=== PATIENT | female | born 1965 | race Caucasian/White ===

== ENCOUNTER 2017-06-28 08:35 | Emergency (ER) | payer MEDICARE, OTHER ==
[~2017-06-28] VITALS: Ht 170.2 cm; Wt 67.0 kg
[~2017-06-28 08:35] MED LIST: ALBU17I; ALBU17I INH; GABA300; IBUP-238 PO; TYLE500T PO
[2017-06-28 08:47] VITALS: BP 139/77; PULSE 68; RESP 19; TEMP 97.6; O2SAT 97
[2017-06-28] MEDS ORDERED: KETOROLAC TROMETHAMINE 60 MG/2 ML (IM) VIAL IM ONE (09:30)
--- NOTE | 2017-06-28 09:47 | PD ---
HPI Chief Complaint: Injury Time Seen by Provider: 09:11 Travel History International Travel<30 days: No Contact w/Intl Traveler<30days: No Traveled to known affect area: No History of Present Illness HPI 52-year-old female presents the emergency department status post slip and fall in the rain yesterday while walking home from work. Patient hurt her anterior espinal but was able to walk home, she states in the night she woke up to pee and noticed that her left knee "locked up", and she has excruciating pain, and is unable to fully extend the knee. She is able to flex it. There is mild effusion noted. She is unable to bear weight on it without significant pain. There is a contusion to the middle anterior espinal on the left. She has no obvious contusion or abrasion to the left knee. She denies any other injury. She denies hitting her head, or loss of consciousness. She states pain is 10 out of 10 and worse with movement. Patient is allergic to tramadol. PFSH Past Medical History Asthma: Yes Autoimmune Disease: No Blood Disorders: No Anxiety: Yes Depression: Yes Cancer: No Diabetes: Yes (NO MEDS) Diminished Hearing: No GERD: Yes Psychiatric: No Thyroid Disease: Yes ?: Not : 5 Para: 4 : 1 Tubal Ligation: Yes Past Surgical History AICD: No Body Medical Devices: RLS Pacemaker: No Other Surgery: Yes (RIGHT HAND) Social History Alcohol Use: Yes (5-6 BEERS PER WEEK) Tobacco Use: No Substance Use: Yes (COCAINE WEED-CLEAN FOR 12 YRS) Allergies-Medications (Allergen,Severity, Reaction): Coded Allergies: tramadol (Unverified Adverse Reaction, Mild, HIVES, 06/28/17) Reported Meds & Prescriptions Reported Meds & Active Scripts Active Tylenol (Acetaminophen) 500 Mg Tab 1,000 Mg PO TID PRN Motrin (Ibuprofen) 800 Mg Tab 800 Mg PO TID PRN Proventil Mdi (Albuterol Sulfate) 17 Gm Aero 2 Puff INH Q3-4HPRN Reported Neurontin (Gabapentin) 300 Mg Cap Proventil Mdi (Albuterol Sulfate) 17 Gm Aero Review of Systems Except as stated in HPI: all other systems reviewed are Neg General / Constitutional: No: Fever Eyes: No: Visual changes HENT: No: Headaches Cardiovascular: No: Chest Pain or Discomfort Respiratory: No: Shortness of Breath Gastrointestinal: No: Abdominal Pain Genitourinary: No: Dysuria Musculoskeletal: Positive: Arthralgias, Limited ROM, Pain Skin: No Rash Neurologic: No: Weakness Psychiatric: No: Depression Endocrine: No: Polydipsia Hematologic/Lymphatic: No: Easy Bruising Physical Exam Narrative GENERAL: Patient appears in mild to moderate distress. SKIN: Warm and dry. Normal color. Normal turgor. Patient has contusion with ecchymosis to the anterior left middle espinal. No other significant findings are noted. HEAD: Atraumatic. Normocephalic. EYES: Pupils equal and round. No scleral icterus. No injection or drainage. ENT: No nasal bleeding or discharge. Mucous membranes pink and moist. Pharynx is clear. Airways patent. NECK: Trachea midline. Supple and nontender. CARDIOVASCULAR: Regular rate and rhythm. RESPIRATORY: No accessory muscle use. Clear to auscultation. Breath sounds equal bilaterally. MUSCULOSKELETAL: Extremities without clubbing, cyanosis, or edema. No obvious deformities. Left knee exam is limited secondary to pain. Patient is unable to fully extend the knee, and it comes to a stop at 20 flexion. No significant effusion is noted. No significant pain with palpation to the knee joints. Patient has positive Moustapha's with medial rotation. No obvious laxity is noted. NEUROLOGICAL: Awake and alert. No obvious cranial nerve deficits. Motor grossly within normal limits. Five out of 5 muscle strength in the arms and legs. Normal speech. PSYCHIATRIC: Appropriate mood and affect; insight and judgment normal. Data Data Last Documented VS Vital Signs Date Time Temp Pulse Resp B/P (MAP) Pulse Ox O2 Delivery O2 Flow Rate FiO2 06/28/17 08:47 97.6 68 19 139/77 (97) 97 Orders Orders Knee, Complete (4vws) (06/28/17 09:17) Ice/Cold Pack (06/28/17 09:17) Splint Or Brace Apply/Monitor (06/28/17 09:17) Crutches (06/28/17 09:17) Ketorolac Inj (Toradol Inj) (06/28/17 09:30) [facility] Medical Decision Making Medical Screen Exam Complete: Yes Emergency Medical Condition: Yes Differential Diagnosis Slip and fall. Knee sprain. Cartilage tear. Narrative Course Patient is given Toradol 60 mg IM. X-rays of the left knee are obtained. Patient is placed in a knee immobilizer and crutches. Left knee x-rays show significant osteoarthritis, but no obvious fracture. Patient is given Lortab 5/325 one every 6 hours as needed pain #12. Patient is given ibuprofen 800 mg 3 times daily with food #30. Patient is to use knee immobilizer and crutches with weightbearing as tolerated for the next week. Work note with restrictions as given. Patient is to follow with Dr. Henry, the orthopedic on-call, if symptoms do not improve in the next week. Diagnosis Primary Impression: Knee pain, left Qualified Codes: M25.562 - Pain in left knee Referrals: Yehuda Henry MD as needed Patient Instructions: Crutch Instructions (ED), General Instructions, Knee Immobilizer (DC) Departure Forms: Work Release Enter return to work date: Jun 29, 2017 Special Instructions: Patient is to wear her left knee immobilizer and use crutches for ambulation 1 week . Additional Instructions: Patient is placed in a knee immobilizer and crutches. Left knee x-rays show significant osteoarthritis, but no obvious fracture. Patient is given Lortab 5/325 one every 6 hours as needed pain #12. Patient is given ibuprofen 800 mg 3 times daily with food #30. Patient is to use knee immobilizer and crutches with weightbearing as tolerated for the next week. Work note with restrictions as given. Patient is to follow with Dr. Henry, the orthopedic on-call, if symptoms do not improve in the next week. Med/Other Pt SpecificInfo: Prescription(s) given Disposition: 01 DISCHARGE HOME Condition: Stable [place] Man Jun 28, 2017 09:47
--- NOTE | 2017-06-28 10:15 | RADRPT ---
EXAM DATE/TIME: 06/28/2017 09:39 [facility] COMPARISON: No previous studies available for comparison. INDICATIONS : Left posterior-lateral knee pain after slip and hyperextension. MEDICAL HISTORY : None. SURGICAL HISTORY : None. ENCOUNTER: Initial ACUITY: 2 days PAIN SCORE: 8/10 LOCATION: Left posterior lateral knee FINDINGS: Four view examination of the left knee demonstrates tricompartment osteoarthritic changes most severe in the medial tibiofemoral joint space with marked loss of joint height and associated marginal spur . Ossific fragment in the lateral joint space initially thought represent a benign fabella however, t he fragment is positioned somewhat lateral and the inner surface is not completely corticated, possib ly representing a avulsion injury. A small cleft adjacent to the fragment is well-corticated and prob ably chronic/congenital. No large bone fracture. Small suprapatellar effusion. CONCLUSION: 1. Osteoarthritic changes most prominent in the medial tibiofemoral joint space. 2. Small suprapatellar effusion. 3. Unusual fabella versus avulsion fragment posterolateral to the lateral femoral condyle. If patient has point tenderness in this region, would recommend a CT scan of the knee for further characterizat ion. Jonathan Nix MD on June 28, 2017 at 10:06 Board Certified Radiologist. This report was verified electronically.
[2017-06-28] MEDS ORDERED: HYDR-3516 PO ×2 (10:17→10:39)
[2017-06-28] MEDS ORDERED: IBUP1TAB7 PO (10:17)
== END 2017-06-28 10:51 | disposition home or self-care (01) ==
LOC: NEPK 08:35
DX: M25.562 Pain in left knee (principal)
CPT/HCPCS: 73564; 96372; 99283; E0113; J1885; L1830

== ENCOUNTER 2017-07-19 03:11 | Emergency (ER) | payer OTHER, MEDICAID ==
[~2017-07-19 03:11] MED LIST changes: +HYDR-3516 PO; +IBUP1TAB7 PO
[2017-07-19 03:12] VITALS: BP 152/90; PULSE 87; RESP 18; TEMP 98.5; O2SAT 98
[2017-07-19] MEDS ORDERED: KETO10 PO (03:40)
--- NOTE | 2017-07-19 03:40 | PD ---
HPI Chief Complaint: Pain: Acute or Chronic Time Seen by Provider: 03:19 Travel History International Travel<30 days: No Contact w/Intl Traveler<30days: No Traveled to known affect area: No History of Present Illness HPI Patient is a 52-year-old female presenting to emerge from for evaluation of left knee pain. Patient states is chronic in nature. She reports that she got up out of her chair at home at 4 PM yesterday afternoon and the pain exacerbated. She reports a history of arthritis. She takes Goody's arthritis medication as well as Tylenol. 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 She states her knee is aching and throbbing, her pain is a 7 out of 10. No new injury or trauma. No numbness, weakness. Symptom onset is chronic, symptoms are exacerbated with movement. No alleviating factors. PFSH Past Medical History Asthma: Yes Anxiety: Yes Depression: Yes Diabetes: Yes GERD: Yes Psychiatric: No Immunizations Current: Yes Thyroid Disease: Yes ?: Not : 5 Para: 4 : 1 Tubal Ligation: Yes Past Surgical History AICD: No Body Medical Devices: RLS Pacemaker: No Other Surgery: Yes (RIGHT HAND) Social History Alcohol Use: Yes Tobacco Use: No Substance Use: No (HX, COCAINE WEED, CLEAN NOW) Allergies-Medications (Allergen,Severity, Reaction): Coded Allergies: tramadol (Unverified Adverse Reaction, Mild, HIVES, 07/19/17) Reported Meds & Prescriptions Reported Meds & Active Scripts Active Ibuprofen 800 Mg Tab 800 Mg PO Q8H PRN Review of Systems Except as stated in HPI: all other systems reviewed are Neg Musculoskeletal: Positive: Myalgias, Arthralgias, Pain Physical Exam Narrative GENERAL: Well-developed, well-nourished, alert female. Presenting in no acute distress. SKIN: Warm and dry. HEAD: Normocephalic. EYES: No scleral icterus. No injection or drainage. NECK: Supple, trachea midline. No JVD or lymphadenopathy. CARDIOVASCULAR: Regular rate and rhythm without murmurs, gallops, or rubs. RESPIRATORY: Breath sounds equal bilaterally. No accessory muscle use. GASTROINTESTINAL: Abdomen soft, non-tender, nondistended. MUSCULOSKELETAL: No cyanosis, or edema. Full ROM in left knee. No obvious deformity noted. BACK: Nontender without obvious deformity. No CVA tenderness. Data Data Last Documented VS Vital Signs Date Time Temp Pulse Resp B/P (MAP) Pulse Ox O2 Delivery O2 Flow Rate FiO2 07/19/17 03:12 98.5 87 18 152/90 (110) 98 Orders Orders Ed Discharge Order (07/19/17 03:33) MDM Medical Decision Making Medical Screen Exam Complete: Yes Emergency Medical Condition: Yes Interpretation(s) Vital Signs Date Time Temp Pulse Resp B/P (MAP) Pulse Ox O2 Delivery O2 Flow Rate FiO2 07/19/17 03:12 98.5 87 18 152/90 (110) 98 Differential Diagnosis Sprain versus strain versus arthritis versus other Narrative Course Patient is well-appearing 52-year-old female presenting for evaluation of chronic left knee pain which was exacerbated since yesterday afternoon. Patient 's vital signs are stable. No obvious deformity. Patient is neurovascularly intact. Patient is encouraged to follow-up with a primary doctor or at the [facility]. She is encouraged to rest, ice, elevate extremity. She is advised to avoid overuse of NSAIDs and acetaminophen. She will be provided with a prescription for ketorolac. She was advised to avoid using it with other anti-inflammatory medications. She was educated on the risks associated with overdosing on these medications. Patient verbalized understanding of instructions. Patient stable for discharge. Diagnosis Primary Impression: Chronic knee pain Qualified Codes: M25.562 - Pain in left knee; G89.29 - Other chronic pain Referrals: [facility] 1 day Patient Instructions: Arthritis (ED), General Instructions, Knee Exercises (GEN ), Knee Pain (ED) Departure Forms: Tests/Procedures, Work Release Enter return to work date: July 20, 2017 Additional Instructions: Follow-up with your primary doctor or at the [facility] If you call at 8 AM in the morning they have open appointments available daily, first come first served Take medications as needed and as directed for pain Do not take ibuprofen, Aleve and ketorolac at the same time as these medications belong to the same drug class and you could be overdosing on medication Return to emergency department for any new or worsening symptoms Rest, ice, elevate extremity Med/Other Pt SpecificInfo: Prescription(s) given Scripts Ketorolac (Ketorolac) 10 Mg Tab 10 MG PO TID Y for Pain Management, #30 TAB 0 Refills Prov: Darby Irby 07/19/17 Disposition: 01 DISCHARGE HOME Condition: Stable Darby Irby July 19, 2017 03:40
== END 2017-07-19 04:06 | disposition home or self-care (01) ==
LOC: NEPD 03:11
DX: M25.562 Pain in left knee (principal); G89.29 Other chronic pain
CPT/HCPCS: 99283